=== PATIENT | female | born 1965 | race Caucasian/White ===

== ENCOUNTER 2017-05-11 15:36 | Emergency (ER) | payer BC ==
[~2017-05-11 15:36] MED LIST: ACCUNEB INH; ADVAIR250 INH; ALBUTEROL5 INH; BENTYL20 PO; CALTRAT600 PO; DURA100 TOP; EXCEDRIN EXTRA1 EACH PO; EXCEDRINTB PO; KLONO2 PO; L40 PO; LIBRAX PO; LORTAB10 PO; LYRICA150 MG PO; METHOC750B PO; MOBIC7.5 PO; NORCO1 TAB PO; PR25 PO; PRILO PO; PROTONIX PO; PROVHFA INH; RANITIDINE300 MG PO; REG PO; REGLAN10 MG OR; SEASONALE OR; SUPER B COMP OR; TRAZ100 PO; WELL100 PO; ZANTAC300 MG PO; ZOL100 PO
[2017-05-11 17:02] LABS: BASOPHILS 0.4 %; BASOPHILS ABSOLUTE 0.02 10/3/uL (0.0-0.16); EOSINOPHILS 2.5 %; EOSINOPHILS ABSOLUTE 0.14 10/3/uL (0.0-0.53); HEMATOCRIT 36.7 % (36.0-48.0); HEMOGLOBIN 12.4 g/dL (12.0-16.0); IMMATURE GRANULOCYTES 0.4 %; IMMATURE GRANULOCYTES ABSOLUTE 0.02 10/3/uL (0.0-0.11); LYMPHOCYTES 37.5 %; MEAN CORPUS HGB CONC 33.8 g/dL (32.0-36.0); MEAN CORPUSCULAR HEMOGLOB 30.4 pg (26.0-34.0); MONOCYTES 8.6 %; MONOCYTES ABSOLUTE 0.48 10/3/uL (0.21-1.20); NEUTROPHILS 50.6 %; NEUTROPHILS ABSOLUTE 2.84 10/3/uL (2.02-8.40); PLATELET COUNT 167 10/3/uL (150-400); RBC DISTRIBUTION WIDTH 15.3 % (12.0-16.0); RED CELL COUNT 4.08 10/6/uL (4.0-5.6); WHITE BLOOD CELLS 5.6 10/3/uL (4.5-10.5)
[2017-05-11 17:06] LABS: MANUAL DIFF NO %
[2017-05-11 17:14] LABS: INTERNATIONAL NORMAL RATI 1.1 UNITS (-); PROTIME (NOT ORD) 13.8 SEC (12.0-14.5)
[2017-05-11 17:15] LABS: A/G RATIO 1.3 (0.7-1.9); ALBUMIN 3.7 G/DL (3.5-5.0); CALCIUM, SERUM 8.6 MG/DL (8.5-10.4); CHLORIDE, SERUM 100 MMOL/L (96-112); CO2 (CARBON DIOXIDE) 33 MMOL/L (24-34); GLOBULIN 2.9 G/DL (2.5-4.1); GLUCOSE, SERUM 88 MG/DL (60-99); SGPT(ALT) 13 U/L (5-65); SODIUM, SERUM 138 MMOL/L (135-148); TOTAL BILIRUBIN 0.5 MG/DL (0-1.2); TOTAL PROTEIN 6.6 G/DL (6.0-8.5)
[2017-05-11 17:17] LABS: ALKALINE PHOSPHATASE 50 U/L (45-117); BUN (BLOOD UREA NITROGEN) 32 MG/DL (6-23); CREATININE 1.79 MG/DL (0.55-1.02); GFR AFRICAN AMERICAN 37 ML/MIN (>=60); GFR NON AFRICAN AMERICAN 32 ML/MIN (>=60); POTASSIUM, SERUM 4.2 MMOL/L (3.5-5.3); SGOT(AST) 23 U/L (5-40)
[2017-05-11 18:56] LABS: ASCORBIC ACID (UR NOT ORDER) NEG (NEG); BILIRUBIN, URINE NEGATIVE (NEG); ER URINALYSIS TAT 0 Hrs 13 Mins; KETONE, URINE NEGATIVE (NEG); LEUKOCYTE ESTERASE(NOT OR MOD (NEG); NITRITE (URINE) NEG (NEG); WBC (NOT ORDERED) (RFLEX) 15 (0-5)
[2017-05-11 19:26] LABS: AMPHETAMINES (NOT ORD) POS (NEG); BARBITURATES (NOT ORDERED NEG (NEG); BENZODIAZEPINES (NOT ORD) POS (NEG); CANNABINOIDS (THC) NEG (NEG); COCAINE (NOT ORDERED) NEG (NEG); OPIATES POS (NEG); PHENCYCLIDINE(PCP) NEG (NEG); TRICYCLICS NEG (NEG)
[2017-06-21] MEDS ORDERED: ABILIFY10 PO (19:47)
[2017-06-21] MEDS ORDERED: PROVIGIL2 PO (19:48)
[2017-06-21] MEDS ORDERED: DEPAKOTEER PO (19:48)
[2017-06-21] MEDS ORDERED: BACDS PO (19:49)
[2017-06-21] MEDS ORDERED: BENTYL20 PO (19:50)
[2017-06-21] MEDS ORDERED: MSCONTIN PO (19:50)
[2017-06-21] MEDS ORDERED: NORCO1 TAB PO (19:50)
[2017-06-21] MEDS ORDERED: NITROSTAT0.4 MG SL (19:52)
[2017-06-21] MEDS ORDERED: IBU800 PO (19:52)
[2017-06-21] MEDS ORDERED: BEN25 PO (19:53)
[2017-06-21] MEDS ORDERED: RANITIDINE300 MG PO (19:54)
[2017-06-21] MEDS ORDERED: REG PO (19:54)
[2017-06-21] MEDS ORDERED: PR25 PO (19:54)
[2017-06-21] MEDS ORDERED: PROVHFA INH (19:54)
[2017-06-21] MEDS ORDERED: PRILOSEC40 MG PO (19:55)
[2017-06-21] MEDS ORDERED: KLONO2 PO (19:55)
[2017-06-21] MEDS ORDERED: RESTORIL30 MG PO (19:55)
[2017-06-21] MEDS ORDERED: TRAZ100 PO (19:56)
[2017-06-21] MEDS ORDERED: GLUCOPHAGE1000 MG PO (19:56)
[2017-06-21] MEDS ORDERED: L40 PO (19:56)
[2017-06-21] MEDS ORDERED: FLEX PO (19:56)
[2017-06-21] MEDS ORDERED: LYRICA150 MG PO (19:57)
[2017-06-21] MEDS ORDERED: ADVAIR250 INH (19:57)
[2017-06-21] MEDS ORDERED: ALBUTEROL0.083 % INH (19:57)
== END 2017-05-11 21:12 | disposition home or self-care (01) ==
LOC: ER 15:36
PROVIDERS: Emergency Medicine
DX: E86.0 Dehydration (principal); N39.0 Urinary tract infection, site not specified; F11.20 Opioid dependence, uncomplicated; I50.9 Heart failure, unspecified; Z88.8 Allergy status to other drugs, medicaments and biological substances; Z79.82 Long term (current) use of aspirin; Z79.899 Other long term (current) drug therapy
CPT/HCPCS: 70450; 71010; 80053; 80305; 81001; 85025; 85610; 87086; 96374; 96375; 99285